=== PATIENT | female | born 1995 | race Caucasian/White ===

== ENCOUNTER 2018-06-15 14:36 | Emergency (ER) | payer OTHER ==
[~2018-06-15] VITALS: Ht 160 cm; Wt 64.9 kg
[~2018-06-15 14:36] MED LIST: AMOXICILLIN500 MG PO; AMOXIL400 MG/5 M PO; ANAPROX DS550 MG PO; BACTRIM DS 8001 TA1 PO; CIPRO250 MG PO; CLARITIN10 MG PO; CLINDAMYCIN HC300 MG PO; COLACE100 MG PO; FERROUS SULFAT325 MG PO; FLAGYL500 MG PO; FLEXERIL5 MG PO; FLOMAX0.4 MG PO; FLUTICASON0.05 MG/A1 NAS; GOOD SENSE ALLE10 MG PO; KEFLEX500 MG PO; LEVAQUIN750 MG PO; LIDEX0.05% T; LOMOTIL 0.025 M1 TA1 PO; MACROBID100 M1 PO; MEDROL DOSEPAK4 MG PO; MOTRIN400 MG PO; MOTRIN800 MG PO; NAPROSYN500 MG PO; NASONEX0.05 MG/AC NS; NEXIUM40 MG PO; NIX 60 ML60 ML T; NIX 60 ML60 ML TP; NKHM; NKHM PO; PENICILLIN VK500 MG PO; PERCOCET 325 MG1 TA2 PO; PERCOCET 325 MG1 TA5 PO; PRENATAL1 TA1 PO; PRENATAL1 TA3 PO; PRENATAL1 TA7 PO; PRENTAL 1 PLUS1 TAB PO; PYRIDIUM100 MG PO; PYRIDIUM200 MG PO; ROBAXIN750 MG PO; ROBITUSSIN DM120 ML PO; RUFEN800 MG PO; SUDAFED 12 HOU120 MG PO; TRIMOX500 MG PO; TYLENOL W/CODEI1 TA2 PO; ULTRAM50 MG PO; VICODIN 5/500 505 MG PO; VOLTAREN50 M1 PO; ZANTAC 150150 MG PO; ZITHROMAX Z PA250 MG PO; ZOFRAN ODT4 MG SL; ZOFRAN4 MG PO; Zofran4 MG PO
[2018-06-15 14:40] VITALS: BP 109/66
[2018-06-15 15:08] LABS: BILIRUBIN NEGATIVE (NEGATIVE); BLOOD NEGATIVE (NEGATIVE); CLARITY CLEAR (CLEAR); COLOR YELLOW (YELLOW); GLUCOSE NEGATIVE (NEGATIVE); KETONE NEGATIVE (NEGATIVE); LEUKO ESTERASE NEGATIVE (NEGATIVE); NITRITE NEGATIVE (NEGATIVE); SPECIFIC GRAVITY 1.015 (1.005-1.030); UROBILINOGEN 0.2 E.U./dl (0.2-1.0)
[2018-06-15 15:16] LABS: BACTERIA TRACE; EPITHELIAL CELLS 35-40; MUCOUS TRACE; RBC 0-2 rbc/hpf (0-2); WBC 0-2 wbc/hpf (0-5)
[2018-06-17 04:03] LABS: GONOCOCCUS BY NAA Negative (Negative)
== END 2018-06-15 15:57 | disposition home or self-care (01) ==
LOC: ED 14:36
PROVIDERS: Nurse Practitioner Family
DX: Z11.3 Encounter for screening for infections with a predominantly sexual mode of transmission (principal); Z88.6 Allergy status to analgesic agent

== ENCOUNTER 2018-10-27 17:49 | Emergency (ER) | payer OTHER ==
[~2018-10-27] VITALS: Ht 160 cm; Wt 68.0 kg
[2018-10-27 17:49] VITALS: BP 122/80
[2018-10-27 18:12] LABS: BILIRUBIN NEGATIVE (NEGATIVE); BLOOD NEGATIVE (NEGATIVE); CLARITY CLOUDY (CLEAR); COLOR YELLOW (YELLOW); GLUCOSE NEGATIVE (NEGATIVE); KETONE 1+ (NEGATIVE); LEUKO ESTERASE TRACE (NEGATIVE); NITRITE NEGATIVE (NEGATIVE)
[2018-10-27 18:21] LABS: BACTERIA 1+; EPITHELIAL CELLS 40-45; RBC 0-2 rbc/hpf (0-2)
[2018-10-27] MEDS ORDERED: CLINDAMYCIN HC300 MG PO (19:02)
== END 2018-10-27 20:00 | disposition home or self-care (01) ==
LOC: ED 17:49
PROVIDERS: Nurse Practitioner Family
DX: N75.0 Cyst of Bartholin's gland (principal); Z88.6 Allergy status to analgesic agent

== ENCOUNTER 2018-10-31 02:05 | Emergency (ER) | payer OTHER ==
[~2018-10-31] VITALS: Ht 160 cm; Wt 68.0 kg
[2018-10-31 02:49] LABS: BASO # 0.1 10*3/uL (0.0-0.1); BASO % 0.5 % (0.0-1.0); EOS # 0.3 10*3/uL (0.0-0.4); EOS % 2.3 % (1.0-4.0); HEMATOCRIT 35.3 % (37.0-47.0); HEMOGLOBIN 11.6 g/dl (12.0-16.0); LYMPH # 1.6 10*3/uL (1.3-4.4); LYMPH % 12.7 % (27.0-41.0); MEAN CELL VOLUME 91.2 fl (81.0-99.0); MEAN CORPUSCULAR HGB CONC 32.9 g/dl (33.0-37.0); MEAN PLATELET VOLUME 9.1 fl (9.6-12.3); MONO # 0.8 10*3/uL (0.1-1.0); MONO % 6.5 % (3.0-9.0); NEUT % 77.7 % (47.0-73.0); PLATELET COUNT AUTOMATED 283 10*3/uL (130-400); RED BLOOD COUNT 3.87 10*6/uL (4.10-5.10); RED CELL DISTRI WIDTH 12.9 % (0-14.5); WHITE BLOOD COUNT 12.9 10*3/uL (4.8-10.8)
[2018-10-31 03:00] LABS: BUN 9 mg/dl (7-24); CHLORIDE 108 mmol/L (98-107); CREATININE 0.69 mg/dL (0.55-1.02); POTASSIUM 3.4 mmol/L (3.5-5.1); SODIUM 141 mmol/L (136-145)
[2018-10-31 03:56] LABS: BILIRUBIN NEGATIVE (NEGATIVE); BLOOD NEGATIVE (NEGATIVE); CLARITY SL CLOUDY (CLEAR); COLOR YELLOW (YELLOW); GLUCOSE NEGATIVE (NEGATIVE); KETONE NEGATIVE (NEGATIVE); LEUKO ESTERASE 1+ (NEGATIVE); NITRITE NEGATIVE (NEGATIVE); SPECIFIC GRAVITY >= 1.030 (1.005-1.030); UROBILINOGEN 0.2 E.U./dl (0.2-1.0)
[2018-10-31 04:03] LABS: BACTERIA 1+; EPITHELIAL CELLS 45-50; WBC 21-30 wbc/hpf (0-5)
[2018-10-31 12:20] VITALS: BP 122/72
== END 2018-10-31 13:00 | disposition short-term general hospital (02) ==
LOC: ED 02:05
PROVIDERS: Emergency Medicine
DX: N75.0 Cyst of Bartholin's gland (principal); N76.2 Acute vulvitis; N76.4 Abscess of vulva; Z88.6 Allergy status to analgesic agent

== ENCOUNTER 2019-05-11 10:08 | Emergency (ER) | payer OTHER ==
[~2019-05-11] VITALS: Wt 74.4 kg
[~2019-05-11 10:08] MED LIST changes: +AMOXICILLIN500 M2 PO
[2019-05-11 10:09] VITALS: BP 102/78
[2019-05-11 10:21] LABS: BASO # 0.1 10*3/uL (0.0-0.1); BASO % 1.2 % (0.0-1.0); EOS # 0.4 10*3/uL (0.0-0.4); EOS % 4.8 % (1.0-4.0); HEMATOCRIT 39.2 % (37.0-47.0); HEMOGLOBIN 12.5 g/dl (12.0-16.0); LYMPH # 2.6 10*3/uL (1.3-4.4); LYMPH % 35.3 % (27.0-41.0); MEAN CELL VOLUME 90.5 fl (81.0-99.0); MEAN CORPUSCULAR HGB 28.9 pg (27.0-31.0); MEAN CORPUSCULAR HGB CONC 31.9 g/dl (33.0-37.0); MEAN PLATELET VOLUME 9.2 fl (9.6-12.3); MONO # 0.5 10*3/uL (0.1-1.0); MONO % 6.7 % (3.0-9.0); NEUT # 3.9 10*3/uL (2.3-7.9); NEUT % 51.9 % (47.0-73.0); PLATELET COUNT AUTOMATED 300 10*3/uL (130-400); RED BLOOD COUNT 4.33 10*6/uL (4.10-5.10); WHITE BLOOD COUNT 7.5 10*3/uL (4.8-10.8)
[2019-05-11 10:36] LABS: ALKALINE PHOSPHATASE 63 U/L (45-117); BUN 11 mg/dl (7-24); CHLORIDE 108 mmol/L (98-107); CREATININE 0.72 mg/dL (0.55-1.02); SGOT/AST 8 IU/L (3-35); SGPT/ALT 17 U/L (12-78); SODIUM 138 mmol/L (136-145); TOTAL PROTEIN 7.4 gm/dL (6.4-8.2)
[2019-05-11 10:56] LABS: BILIRUBIN NEGATIVE (NEGATIVE); BLOOD NEGATIVE (NEGATIVE); CLARITY CLEAR (CLEAR); COLOR YELLOW (YELLOW); GLUCOSE NEGATIVE (NEGATIVE); KETONE NEGATIVE (NEGATIVE); LEUKO ESTERASE NEGATIVE (NEGATIVE); NITRITE NEGATIVE (NEGATIVE); SPECIFIC GRAVITY 1.025 (1.005-1.030); UROBILINOGEN 0.2 E.U./dl (0.2-1.0)
[2019-05-11 11:16] LABS: RBC 0-2 rbc/hpf (0-2)
[2019-05-11] MEDS ORDERED: MIRALAX POWDER17 G1 PO (11:44)
== END 2019-05-11 11:47 | disposition home or self-care (01) ==
LOC: ED 10:08
PROVIDERS: Nurse Practitioner Family
DX: K59.00 Constipation, unspecified (principal); R11.2 Nausea with vomiting, unspecified; Z88.6 Allergy status to analgesic agent; Z88.5 Allergy status to narcotic agent

== ENCOUNTER 2019-07-25 17:02 | Emergency (ER) | payer SELFPAY ==
[~2019-07-25] VITALS: Ht 154.9 cm; Wt 79.8 kg
[~2019-07-25 17:02] MED LIST changes: +MIRALAX POWDER17 G1 PO
[2019-07-25 17:03] VITALS: BP 112/71
[2019-07-25] MEDS ORDERED: SEPTDS PO (17:56)
== END 2019-07-25 18:02 | disposition home or self-care (01) ==
LOC: ED 17:02
DX: N76.4 Abscess of vulva (principal); Z98.51 Tubal ligation status; Z98.890 Other specified postprocedural states; Z79.899 Other long term (current) drug therapy; Z88.6 Allergy status to analgesic agent; Z88.5 Allergy status to narcotic agent

== ENCOUNTER 2019-09-28 11:14 | Emergency (ER) | payer SELFPAY ==
[~2019-09-28] VITALS: Ht 154.9 cm; Wt 66.7 kg
[~2019-09-28 11:14] MED LIST changes: +SEPTDS PO
[2019-09-28 11:17] VITALS: BP 114/58
[2019-09-28 12:12] LABS: BILIRUBIN NEGATIVE (NEGATIVE); BLOOD TRACE-INTACT (NEGATIVE); CLARITY SL CLOUDY (CLEAR); COLOR YELLOW (YELLOW); GLUCOSE NEGATIVE (NEGATIVE); KETONE NEGATIVE (NEGATIVE); LEUKO ESTERASE NEGATIVE (NEGATIVE); NITRITE NEGATIVE (NEGATIVE); UROBILINOGEN 0.2 E.U./dl (0.2-1.0)
[2019-09-28 12:12] LABS: BASO # 0.1 10*3/uL (0.0-0.1); BASO % 1.3 % (0.0-1.0); EOS # 0.4 10*3/uL (0.0-0.4); HEMATOCRIT 40.1 % (37.0-47.0); HEMOGLOBIN 12.7 g/dl (12.0-16.0); LYMPH # 2.5 10*3/uL (1.3-4.4); LYMPH % 39.5 % (27.0-41.0); MEAN CELL VOLUME 91.1 fl (81.0-99.0); MEAN CORPUSCULAR HGB 28.9 pg (27.0-31.0); MEAN CORPUSCULAR HGB CONC 31.7 g/dl (33.0-37.0); MEAN PLATELET VOLUME 9.6 fl (9.6-12.3); MONO # 0.6 10*3/uL (0.1-1.0); NEUT # 2.7 10*3/uL (2.3-7.9); PLATELET COUNT AUTOMATED 312 10*3/uL (130-400); RED CELL DISTRI WIDTH 14.1 % (0-14.5); WHITE BLOOD COUNT 6.3 10*3/uL (4.8-10.8)
[2019-09-28 12:26] LABS: ALKALINE PHOSPHATASE 66 U/L (45-117); BUN 10 mg/dl (7-24); CHLORIDE 108 mmol/L (98-107); CREATININE 0.71 mg/dL (0.55-1.02); LIPASE 77 U/L (73-393); SGOT/AST 11 IU/L (3-35); SGPT/ALT 14 U/L (12-78); SODIUM 138 mmol/L (136-145); TOTAL PROTEIN 7.5 gm/dL (6.4-8.2)
[2019-09-28 12:38] LABS: BACTERIA 2+; MUCOUS 1+
[2019-09-28] MEDS ORDERED: ZOFRAN4 MG PO (13:00)
[2019-09-28] MEDS ORDERED: TESSALON PERLE100 M1 PO (13:00)
== END 2019-09-28 13:06 | disposition home or self-care (01) ==
LOC: ED 11:14
PROVIDERS: Physician Assistant
DX: A08.4 Viral intestinal infection, unspecified (principal); J40 Bronchitis, not specified as acute or chronic; H92.03 Otalgia, bilateral; R11.10 Vomiting, unspecified; F17.200 Nicotine dependence, unspecified, uncomplicated; Z88.6 Allergy status to analgesic agent

== ENCOUNTER 2020-05-19 16:17 | Emergency (ER) | payer SELFPAY ==
[~2020-05-19] VITALS: Ht 160 cm; Wt 81.2 kg
[~2020-05-19 16:17] MED LIST changes: +TESSALON PERLE100 M1 PO
[2020-05-19 16:25] VITALS: BP 122/66
[2020-05-19] MEDS ORDERED: FLAGYL500 MG PO (16:42)
[2020-05-19 17:04] LABS: BILIRUBIN NEGATIVE (NEGATIVE); BLOOD 3+ (NEGATIVE); CLARITY SL CLOUDY (CLEAR); COLOR YELLOW (YELLOW); GLUCOSE NEGATIVE (NEGATIVE); KETONE NEGATIVE (NEGATIVE); LEUKO ESTERASE TRACE (NEGATIVE); NITRITE NEGATIVE (NEGATIVE); PH 7.5 (5.0-9.0); UROBILINOGEN 0.2 E.U./dl (0.2-1.0)
[2020-05-19 17:05] LABS: RBC TNTC rbc/hpf (0-2)
[2020-05-19 17:06] LABS: BACTERIA 1+
== END 2020-05-19 17:13 | disposition home or self-care (01) ==
LOC: ED 16:17
PROVIDERS: Nurse Practitioner Family
DX: N76.0 Acute vaginitis (principal); F17.200 Nicotine dependence, unspecified, uncomplicated; Z79.899 Other long term (current) drug therapy

== ENCOUNTER 2020-05-27 10:17 | Emergency (ER) | payer SELFPAY ==
[~2020-05-27] VITALS: Ht 160 cm; Wt 81.2 kg
[2020-05-27 10:23] VITALS: BP 115/66
[2020-05-27] MEDS ORDERED: PREDNISONE10 MG PO (10:33)
== END 2020-05-27 10:30 | disposition home or self-care (01) ==
LOC: ED 10:17
DX: L23.9 Allergic contact dermatitis, unspecified cause (principal); Z88.8 Allergy status to other drugs, medicaments and biological substances; Z79.899 Other long term (current) drug therapy

== ENCOUNTER 2025-01-28 21:42 | Emergency (ER) | payer SELFPAY ==
[~2025-01-28] VITALS: Ht 154.9 cm; Wt 72.6 kg
[~2025-01-28 21:42] MED LIST changes: +PREDNISONE10 MG PO
[2025-01-28 21:52] VITALS: BP 156/79
[2025-01-28] MEDS ORDERED: BENZOCAINE 20% 11.9 GM GEL T STA (22:04)
[2025-01-28] MEDS ORDERED: Lidocaine Hydrochloride 15 ML UDC PO STA (22:04)
[2025-01-28] MEDS ORDERED: Acetaminophen/Oxycodone 5 MG/325 MG TABLET PO ONE (22:05)
== END 2025-01-28 22:11 | disposition home or self-care (01) ==
LOC: ED 21:42
DX: K08.89 Other specified disorders of teeth and supporting structures (principal); Z88.6 Allergy status to analgesic agent; Z88.5 Allergy status to narcotic agent; Z98.890 Other specified postprocedural states